=== PATIENT | male | born 1995 | race Caucasian/White ===

== ENCOUNTER 2016-10-03 12:08 | Emergency (ER) | payer BC ==
[2016-10-03] MEDS ORDERED: Ibuprofen TAB* 400 MG PO ONE (12:35)
--- NOTE | 2016-10-03 12:59 | ED ---
Lower Extremity - HPI Summary HPI Summary: Patient jumped down off a 6 foot wall in thin shoes and had pain in his right heel. He has pain with weight bearing and with ankle inversion and eversion. His ankle and mid-foot are pain free to palpation. He denies N/T and has not taken any medication for pain. - History of Current Complaint Chief Complaint: EDExtremityLower Stated Complaint: RIGHT FOOT PAIN Time Seen by Provider: 10/03/16 12:14 Hx Obtained From: Patient Mechanism Of Injury: Fall From Height Of: - jumped from 6ft. Onset of Pain: Hours Onset/Duration: Still Present Severity Initially: Mild Severity Currently: Moderate Pain Intensity: 5 Timing: Constant Location: Is Discrete @ - right heel Character Of Pain: Sharp, Aching Associated Signs And Symptoms: Positive: Swelling, Bruising Aggravating Factor(s): Standing, Ambulation Alleviating Factor(s): Rest Able to Bear Weight: Yes - with pain - Allergies/Home Medications Allergies/Adverse Reactions: Allergies Allergy/AdvReac Type Severity Reaction Status Date / Time No Known Allergies Allergy Verified 03/17/15 11:50 PMH/Surg Hx/FS Hx/Imm Hx Previously Healthy: Yes Infectious Disease History: No Infectious Disease History: Denies: Traveled Outside the [place] in Last 30 Days - Family History Known Family History: Positive: None - Social History Occupation: Student Lives: Alone Alcohol Use: None Substance Use Type: Reports: None Smoking Status (MU): Never Smoked Tobacco Review of Systems Positive: Myalgia, Edema Positive: Bruising Negative: Paresthesia, Numbness All Other Systems Reviewed And Are Negative: Yes Physical Exam Triage Information Reviewed: Yes Vital Signs On Initial Exam: Initial Vitals Temp Pulse Resp BP Pulse Ox 97 F 80 16 110/89 96 10/03/16 12:08 10/03/16 12:08 10/03/16 12:08 10/03/16 12:08 10/03/16 12:08 Vital Signs Reviewed: Yes Appearance: Positive: Well-Appearing, Pain Distress, Thin Skin: Positive: Warm, Skin Color Reflects Adequate Perfusion, Dry, Soft Head/Face: Positive: Normal Head/Face Inspection Eyes: Positive: EOMI, CELY, Conjunctiva Clear ENT: Positive: Hearing grossly normal Respiratory/Lung Sounds: Positive: Breath Sounds Present Cardiovascular: Positive: RRR Musculoskeletal: Positive: Strength/ROM Intact, Pain @ - TTP med/lat/and plantar surface of heel; non-tender over med/lat malleoli, Edema Right - heel Neurological: Positive: Sensory/Motor Intact, Alert, Oriented to Person Place, Time, NV Bundle Intact Distally, Abnormal Gait Psychiatric: Positive: Affect/Mood Appropriate AVPU Assessment: Alert Diagnostics - Vital Signs Vital Signs Temp Pulse Resp BP Pulse Ox 10/03/16 12:08 97 F 80 16 110/89 96 - Laboratory Lab Statement: Any lab studies that have been ordered have been reviewed, and results considered in the medical decision making process. - Radiology No standard instances Xray Interpretation: No Acute Changes Radiology Interpretation Completed By: Radiologist - CT No standard instances CT Interpretation: No Acute Changes CT Interpretation Completed By: Radiologist Lower Extremity Course/Dx - Diagnoses Differential Diagnosis/HQI/PQRI: Positive: Arthritis, Cellulitis, Contusion, Dislocation, DVT, Fracture (Closed), Puncture Wound, Sprain, Strain Provider Diagnoses: Contusion of right heel Discharge - Discharge Plan Condition: Stable Disposition: HOME Patient Education Materials: Foot Contusion (ED) Additional Instructions: Please use the crutches until your pain improves. You can begin weight bearing as your pain allows. Use ibuprofen 600mg three times daily with meals for the next 5-7 days to decrease swelling and pain. Return to the emergency department if symptoms worsen.
--- NOTE | 2016-10-03 13:27 | RAD ---
Indication: Foot pain and heel pain. 4 views of the right foot demonstrates no fracture. No other bone or joint abnormality is noted. IMPRESSION: Unremarkable right foot.
--- NOTE | 2016-10-03 14:19 | RAD ---
Indication: RIGHT ankle and heel pain post jumping injury. Comparison: October 03, 2016 radiographs. Technique: Noncontrast CT RIGHT hind through mid foot. Multiplanar reformation. Report: Normal articular alignment. Negative for appreciable joint effusions. Small os trigonum and small os tibiale externum accessory ossicles noted without concern. No cortical disruption or suspicious trabecular irregularity to suggest fracture. No osteochondral lesion evident. No soft tissue hematoma evident. Soft tissue edema noted at the heel fat pad. IMPRESSION: Negative for fracture or other traumatic injury aside from mild subcutaneous edema at the heel fat pad.
== END 2016-10-03 14:57 | disposition home or self-care (01) ==
LOC: ED 12:08
DX: S90.31XA Contusion of right foot, initial encounter (principal); W17.89XA Other fall from one level to another, initial encounter
CPT/HCPCS: 99282; A9270-GY